=== PATIENT | male | born 1955 | race Caucasian/White ===

== ENCOUNTER 2017-06-24 09:44 | Day surgery (SDC) | payer BC ==
[~2017-06-24] VITALS: Ht 188 cm; Wt 74.4 kg
[2017-06-24] MEDS ORDERED: AMIO100T4 PO (11:53)
[2017-06-24] MEDS ORDERED: APIX5TAB PO (11:53)
[2017-06-24] MEDS ORDERED: DIGO250T81 PO (11:53)
[2017-06-24] MEDS ORDERED: DILT180C69 PO (11:53)
[2017-06-24] MEDS ORDERED: MIDAZOLAM HCL 5 MG/5 ML VIAL ONE (13:47)
[2017-06-24] MEDS ORDERED: FENTANYL CITRATE/PF 50MCG/ML 2ML VIAL ONE ×2 (13:47→14:11)
[2017-06-24] MEDS ORDERED: TETRACAINE/BENZOCAINE/BUTAMBEN 20 GM SPRAY MM ONE (13:48)
[2017-06-24] MEDS ORDERED: LIDOCAINE HCL 2% JELLY 5ML ONE (13:48)
[2017-06-24] MEDS ORDERED: MIDAZOLAM HCL 2 MG/2 ML VIAL ONE (14:13)
[2017-06-24] MEDS ORDERED: ACETAMINOPHEN 325MG TABLET PO PRN (14:30)
[2017-06-24] MEDS ORDERED: MORPHINE SULFATE 2 MG/ML CPJ (NOT FOR IM USE) IV PRN (14:30)
[2017-06-25] MEDS ORDERED: DILTIAZEM HCL 180MG CAPSULE CD 24HR PO SCH (09:00)
[2017-06-25] MEDS ORDERED: APIXABAN 5 MG TABLET PO SCH (09:00)
[2017-06-25] MEDS ORDERED: DIGOXIN 250MCG TABLET PO SCH (09:00)
== END 2017-06-24 16:15 | disposition home or self-care (01) ==
LOC: CARD 09:44
PROVIDERS: ATTEND Specialist
DX: I48.91 Unspecified atrial fibrillation (principal); I11.0 Hypertensive heart disease with heart failure; I42.9 Cardiomyopathy, unspecified; I44.0 Atrioventricular block, first degree; I50.9 Heart failure, unspecified; Z79.01 Long term (current) use of anticoagulants
CPT/HCPCS: 92960; 93005; 93312; J2250; J3010

== ENCOUNTER → 2021-03-07 | Day surgery (SDC) | payer MEDICARE, BC ==
[~2021-03-07] MED LIST: ACETAMINOPHEN 325MG TABLET PO PRN; AMIO100T4 PO; APIX5TAB PO; DIGO250T79 PO; DILT180C66 PO; FENTANYL CITRATE/PF 50MCG/ML 2ML VIAL ONE; LIDOCAINE HCL 2% JELLY 5ML ONE; MIDAZOLAM HCL 2 MG/2 ML VIAL ONE; TETRACAINE/BENZOCAINE/BUTAMBEN 20 GM SPRAY MM ONE
== END | disposition home or self-care (01) ==
LOC: CCL 06:36
PROVIDERS: ATTEND Specialist
DX: I48.92 Unspecified atrial flutter (principal); I48.91 Unspecified atrial fibrillation; I08.0 Rheumatic disorders of both mitral and aortic valves; I10 Essential (primary) hypertension; Z79.899 Other long term (current) drug therapy; Z98.890 Other specified postprocedural states
CPT/HCPCS: 92960; 93005; 93312; J2250; J3010